=== PATIENT | male | born 1955 | race Two or more races ===

== ENCOUNTER 2018-01-28 09:55 | Inpatient (IN) | payer BC, MEDICAID ==
[~2018-01-28] VITALS: Ht 165.1 cm; Wt 90.3 kg
--- NOTE | 2018-01-28 10:00 | NUR ---
FROM DR'S OFFICE: CHEST PAIN/SOB TODAY. NAD NOTED. PT AAO X4, AMB WITH STEADY GAIT. 86% ON RA AT THIS TIME. NC PLACED 4L. PT PLACED IN GOWN AND MONITOR. MD AT BEDSIDE FOR EVAL.
[2018-01-28 10:26] LABS: BASOPHILS % (AUTO) 0.5 % (0.0-2.0); EOSINOPHILS % (AUTO) 1.9 % (0.0-6.0); HEMATOCRIT 33 % (39-51); HEMOGLOBIN 10.8 g/dL (13.5-17.5); LYMPHOCYTES # (AUTO) 1.9 /CMM (0.8-4.8); LYMPHOCYTES % (AUTO) 25.3 % (20.0-44.0); MEAN CORPUSCULAR HGB CONC 33 g/dl (31.0-36.0); MEAN CORPUSCULAR VOLUME 84 fL (80-96); MONOCYTES # (AUTO) 0.7 /CMM (0.1-1.30); NEUTROPHILS # (AUTO) 4.9 /CMM (1.8-8.9); NEUTROPHILS % (AUTO) 63.3 % (43.0-81.0); PLATELET COUNT (AUTO) 333 /CMM (150-450); RDW COEFFICIENT OF VARIATION 17.1 (11.5-15.0); RED BLOOD CELL COUNT(AUTO) 3.93 MIL/uL (4.5-6.0); WHITE BLOOD COUNT (AUTO) 7.6 K/uL (4.3-11.0)
[2018-01-28] MEDS ORDERED: methylPREDNISolone SOD SUCC 125 MG/2ML VIAL ONE (10:27)
[2018-01-28] MEDS ORDERED: IPRATROPIUM NEB FS 0.5 MG/2.5 ML AMPUL.NEB NEB ONE (10:30)
[2018-01-28] MEDS ORDERED: ALBUTEROL FS 2.5 MG/3 ML VIAL.NEB NEB ONE (10:30)
[2018-01-28] MEDS ORDERED: methylPREDNISolone SOD SUCC 125 MG/2ML VIAL IV ONE (10:30)
[2018-01-28] MEDS ORDERED: ALBUTEROL FS 2.5 MG/3 ML VIAL.NEB ONE (10:32)
[2018-01-28] MEDS ORDERED: IPRATROPIUM NEB FS 0.5 MG/2.5 ML AMPUL.NEB ONE (10:32)
[2018-01-28 10:35] LABS: CALCIUM, SERUM 9.6 mg/dL (8.5-10.1); CREATININE 1.2 mg/dL (0.6-1.3); POTASSIUM 4.1 mmol/L (3.5-5.1)
[2018-01-28 10:43] LABS: TROPONIN I 0.03 ng/mL (0.00-0.056)
[2018-01-28 10:52] LABS: ALBUMIN 3.3 g/dL (3.4-5.0); BILIRUBIN,DIRECT 0.3 mg/dL (0.0-0.2); TOTAL PROTEIN, SERUM 8.3 g/dL (6.4-8.2)
[2018-01-28] MEDS ORDERED: TAMS0.4C34 PO (10:59)
[2018-01-28] MEDS ORDERED: METF-442 PO (10:59)
[2018-01-28] MEDS ORDERED: IBUP-1955 PO (10:59)
[2018-01-28] MEDS ORDERED: DOCU-270 PO (10:59)
[2018-01-28] MEDS ORDERED: LOSA100T15 PO (10:59)
[2018-01-28] MEDS ORDERED: FURO20TA4 PO (10:59)
[2018-01-28] MEDS ORDERED: GABA-532 PO (10:59)
[2018-01-28] MEDS ORDERED: ASPI-1152 PO (10:59)
[2018-01-28] MEDS ORDERED: ALBU18HF2 IH (10:59)
[2018-01-28] MEDS ORDERED: METO-357 PO (10:59)
[2018-01-28] MEDS ORDERED: GLIM2TAB2 PO (10:59)
[2018-01-28] MEDS ORDERED: CLON0.1T PO (11:00)
--- NOTE | 2018-01-28 11:49 | NUR ---
CALLED [employer] ENTRY LEVEL FINANCIAL ANALYST WAS PAGED.
[2018-01-28] MEDS ORDERED: FUROSEMIDE 40 MG/4 ML VIAL ONE (11:59)
[2018-01-28] MEDS ORDERED: NITROGLYCERIN PACKET 1 GM PACKET ONE (11:59)
[2018-01-28] MEDS ORDERED: NITROGLYCERIN PACKET 1 GM PACKET TD ONE (12:00)
[2018-01-28] MEDS ORDERED: ASPIRIN 325 MG TABLET PO ONE (12:00)
[2018-01-28] MEDS ORDERED: FUROSEMIDE 40 MG/4 ML VIAL IV ONE (12:00)
[2018-01-28] MEDS ORDERED: ASPIRIN 325 MG TABLET ONE (12:00)
[2018-01-28 13:45] VITALS: BP 151/79
--- NOTE | 2018-01-28 13:45 | NUR ---
RN NOTES RECEIVED PT FROM ER IN ROOM 112-1, A/OX4, ON 4L O2 N/C , O2 SAT 93%, RESPIRATION EVEN AND UNLABORED , ON TELE SR HR IN 90'S, PT DREAD ANY CHEST PAIN AT THIS TIME ,SR UP x3, CALL LIGHT WITHIN EASY REACH ,BED LOCKED AND IN LOWEST POSITION , CONTINUE TO MONITOR PT MONICA.
[2018-01-28 15:13] LABS: INR 1.08 (0.87-1.13)
[2018-01-28 15:57] LABS: ABG BASE EXCESS 10.2 mmol/L; ABG OXYGEN SATURATION 91.2 % (92.0-98.5); ABG PCO2 55.5 mmHg (35.0-45.0); ABG PH 7.433 (7.350-7.450); ABG PO2 65.7 mmHg (75.0-100.0); AaDO2 126.6 mmHg; COHb 0.9 % (0.5-1.5); MetHb 0.4 % (0.0-1.5); SITE, ABG Right Radial; VENT MODE, BG nasal cannula
[2018-01-28] MEDS ORDERED: IBUPROFEN 600 MG TABLET PO PRN (16:00)
[2018-01-28] MEDS ORDERED: Z GUARD REMEDY 2 OZ OINT TP PRN (16:00)
[2018-01-28] MEDS ORDERED: MAGNESIUM HYDROXIDE 30 ML UDC PO PRN (16:00)
[2018-01-28] MEDS ORDERED: MAG HYDROX/AL HYDROX/SIMETH 30 ML UDC PO PRN (16:00)
[2018-01-28] MEDS ORDERED: ONDANSETRON HCL/PF 4 MG/2 ML VIAL IVP PRN (16:00)
[2018-01-28] MEDS ORDERED: ACETAMINOPHEN 325 MG TABLET PO PRN (16:00)
--- NOTE | 2018-01-28 16:03 | NUR ---
ABG RESULTS REPORTED TO AND CHARGE NURSE(SOON) WITH NO CHANGES ORDERED.
[2018-01-28] MEDS: IPRATROPIUM NEB FS 0.5 MG/2.5 ML AMPUL.NEB NEB SCH ×2 (16:43→19:53)
[2018-01-28] MEDS: FUROSEMIDE 20 MG TABLET PO SCH (17:07)
[2018-01-28] MEDS: METFORMIN 500 MG TABLET PO SCH (17:08)
[2018-01-28] MEDS: HYDROCODONE/APAP 5/325MG 1 EACH TABLET PO PRN (18:28)
--- NOTE | 2018-01-28 18:46 | NUR ---
RN NOTES PT STABLE , DREAD ANY DISTRESS AT THIS TIME, SR UPx3, CALL LIGHT WITHIN EASY REACH, WILL ENDORSE TO WATCH ELECTRICIAN NURSE FOR DEMETRIA
[2018-01-28] MEDS ORDERED: ALBUTEROL FS 2.5 MG/0.5 ML VIAL.NEB NEB PRN (19:30)
--- NOTE | 2018-01-28 19:30 | NUR ---
LADY/RN NOTES: RECEIVED PT. IN BED W/ HOB ELEVATED. A/O X 4. ABLE TO MAKE NEEDS KNOWN. ON O2 @ 3LPM VIA N/C SAT. 96%. NO S/S OF RESPIRATORY DISTRESS NOTED. ON TELE MONITOR SR @ 74. CONTINENT OF B/B. USES URINAL. CALL LIGHT W/ REACH. ALL NEED MEET. WILL CONTINUE TO MONITOR.
[2018-01-28 20:00] VITALS: BP 160/87
[2018-01-28] MEDS: GABAPENTIN 100 MG CAPSULE PO SCH (21:27)
[2018-01-29] VITALS: BP 164/85
[2018-01-29] MEDS: CLONIDINE HCL 0.1 MG TABLET PO PRN (00:28)
[2018-01-29] MEDS: IPRATROPIUM NEB FS 0.5 MG/2.5 ML AMPUL.NEB NEB SCH ×4 (01:33→19:43)
[2018-01-29] MEDS: HYDROCODONE/APAP 5/325MG 1 EACH TABLET PO PRN (03:23)
[2018-01-29 04:00] VITALS: BP 159/87
[2018-01-29] MEDS: hydrALAZINE HCL IV 20 MG VIAL IV PRN (06:11)
[2018-01-29 07:06] LABS: BASOPHILS % (AUTO) 0.2 % (0.0-2.0); HEMATOCRIT 32 % (39-51); HEMOGLOBIN 10.4 g/dL (13.5-17.5); LYMPHOCYTES % (AUTO) 13.5 % (20.0-44.0); MEAN CORPUSCULAR HGB CONC 32 g/dl (31.0-36.0); MEAN CORPUSCULAR VOLUME 86 fL (80-96); MONOCYTES # (AUTO) 0.8 /CMM (0.1-1.30); MONOCYTES % (AUTO) 11.6 % (2.0-12.0); NEUTROPHILS # (AUTO) 5.4 /CMM (1.8-8.9); NEUTROPHILS % (AUTO) 74.7 % (43.0-81.0); PLATELET COUNT (AUTO) 274 /CMM (150-450); RDW COEFFICIENT OF VARIATION 17.7 (11.5-15.0); RED BLOOD CELL COUNT(AUTO) 3.78 MIL/uL (4.5-6.0); WHITE BLOOD COUNT (AUTO) 7.3 K/uL (4.3-11.0)
--- NOTE | 2018-01-29 07:30 | NUR ---
LADY/RN AM NOTES: RECEIVED PT. IN BED W/ HOB ELEVATED. A/O X 4. ABLE TO MAKE NEEDS KNOWN. ON O2 @ 3LPM VIA N/C SAT. 91%. NO SOB, NOT IN ANY DISTRESS, TELEMETRY READS SR HR 87. DENIES PAIN. RAC G 18 IVHL FLUSHES WELL, SITE CLEAR. ON CCHO. BRP. CONTINENT OF B/B. USES URINAL. INTACT SKIN. CALL LIGHT W/ REACH. WILL CONTINUE TO MONITOR.
[2018-01-29 07:33] LABS: THYROID STIMULATING HORMONE 0.932 uIU/mL (0.358-3.74)
[2018-01-29 07:38] LABS: ALBUMIN 3.1 g/dL (3.4-5.0); BILIRUBIN,TOTAL 0.5 mg/dL (0.2-1.0); CALCIUM, SERUM 9.1 mg/dL (8.5-10.1); CREATININE 1.3 mg/dL (0.6-1.3); MAGNESIUM 2.7 mg/dL (1.8-2.4); PHOSPHORUS 5.3 mg/dL (2.5-4.9); POTASSIUM 5.3 mmol/L (3.5-5.1); TOTAL PROTEIN, SERUM 7.9 g/dL (6.4-8.2)
--- NOTE | 2018-01-29 07:38 | NUR ---
LADY/RN NOTES: BP IN 180'S. W/ NEW ORDERS NOTED AND CARRIED OUT. REPORT GIVEN TO NEXT SHIFT NURSE FOR DEMETRIA.
[2018-01-29 08:00] VITALS: BP 143/70
--- NOTE | 2018-01-29 09:30 | NUR ---
LADY RN NOTES DUE MEDS GIVEN
[2018-01-29] MEDS: GLIMEPIRIDE 1 MG TABLET PO SCH (09:33)
[2018-01-29] MEDS: TAMSULOSIN 0.4 MG CAP.SR.24H PO SCH (09:33)
[2018-01-29] MEDS: FUROSEMIDE 20 MG TABLET PO SCH ×2 (09:33→16:30)
[2018-01-29] MEDS: METFORMIN 500 MG TABLET PO SCH ×2 (09:33→16:30)
[2018-01-29] MEDS: DOCUSATE SODIUM 100 MG CAPSULE PO SCH (09:33)
[2018-01-29] MEDS: ASPIRIN EC 81 MG TABLET.DR PO SCH (09:34)
[2018-01-29] MEDS: METOPROLOL SUCCINATE 50 MG TAB.SR.24H PO SCH (09:35)
[2018-01-29] MEDS: LOSARTAN POTASSIUM 50 MG TABLET PO SCH (09:36)
[2018-01-29] MEDS ORDERED: LIDOCAINE HCL/PF 1% 30 ML SDV ONE (10:55)
--- NOTE | 2018-01-29 11:38 | NUR ---
LADY ORDONEZ NOTES S/P THORACENTESIS RIGHT PLEURAL EFFUSION 1600 ML OUT. SPECIMEN LABELED AND SENT TO LAB. Addendum: 01/29/18 at 1432 by COSTA EDWARDS RN CORRECTION: 1500 ML OUTPUT
[2018-01-29 12:00] VITALS: BP 158/84
[2018-01-29 16:00] VITALS: BP 131/83
[2018-01-29] MEDS ORDERED: MORPHINE SULFATE INJ 4 MG/ML DISP.SYRIN IV ONE (16:00)
--- NOTE | 2018-01-29 16:12 | NUR ---
LADY RN NOTES PATIENT IS ON OXYGEN AND HAS MILD SOB WHEN MOVING. S/P THORACENTESIS. WILL NOT GIVE MORPHINE SULFATE AT THIS TIME DUE RESPIRATORY ISSUES. PATIENT ALSO IS S/P THORACENTESIS. BLANE MORENO SUPERVISOR LABORATORY AWARE.
--- NOTE | 2018-01-29 18:45 | NUR ---
LADY/RN CLOSING NOTES: PT. IN BED RESTING, W/ HOB ELEVATED. A/O X 4. ABLE TO MAKE NEEDS KNOWN. ON O2 @ 3LPM VIA N/C SAT. 95%. NO SOB, NOT IN ANY DISTRESS, TELEMETRY READS SR HR 78. DENIES PAIN. RAC G 18 IVHL FLUSHES WELL, SITE CLEAR. ON CCHO. BRP. CONTINENT OF B/B. USES URINAL. INTACT SKIN. CALL LIGHT W/ REACH. ALL NEEDS MET, NO OTHER SIGNIFICANT CHANGE IN CONDITION. WILL ENDORSE TO NEXT SHIFT FOR DEMETRIA.
--- NOTE | 2018-01-29 19:30 | NUR ---
LADY/RN NOTES: RECEIVED PT. IN BED W/ HOB ELEVATED W/ O2 @ 3LPM VIA N/C SAT. 93%. W/ AT BEDSIDE. A/O X 4. ON TELE MONITOR W/ SR @ 76. S/P THORACENTESIS. HAS IV SL ON RAC G 18 PATENT AND INTACT W/ NO S/S OF INFECTION/INFILTRATION NOTED. PT. IS CONTINENT OF B/B. USES URINAL AND GOES TO BATHROOM. DENIES ANY C/O CHEST PAIN OR SOB AT PRESENT. WILL CONTINUE TO MONITOR.
[2018-01-29 20:00] VITALS: BP 133/71
[2018-01-29] MEDS: GABAPENTIN 100 MG CAPSULE PO SCH (21:19)
[2018-01-30] VITALS (17 sets, daily range): BP systolic 129–185; BP diastolic 71–104
[2018-01-30] MEDS: IPRATROPIUM NEB FS 0.5 MG/2.5 ML AMPUL.NEB NEB SCH ×4 (01:48→19:33)
[2018-01-30] MEDS: hydrALAZINE HCL IV 20 MG VIAL IV PRN (05:19)
[2018-01-30 06:59] LABS: CALCIUM, SERUM 8.9 mg/dL (8.5-10.1); CREATININE 1.2 mg/dL (0.6-1.3); POTASSIUM 4.6 mmol/L (3.5-5.1)
--- NOTE | 2018-01-30 07:15 | NUR ---
LADY/RN NOTES: NO CHANGE NOTED DURING THIS SHIFT. REPORT GIVEN TO AM NURSE FOR DEMETRIA.
--- NOTE | 2018-01-30 07:30 | NUR ---
LADY/RN: Pt received on RA, SOB, reapplied O2 at 3L/min via NC. Pt A&Ox3, calm, cooperative. Pt states he feels "so-so" and reports having difficulty sleeping at night. Informed pt that he must keep oxygen on, verbalized understanding. Will cont to monitor pt.
[2018-01-30] MEDS: TAMSULOSIN 0.4 MG CAP.SR.24H PO SCH (08:17)
[2018-01-30] MEDS: METOPROLOL SUCCINATE 50 MG TAB.SR.24H PO SCH (08:17)
[2018-01-30] MEDS: GLIMEPIRIDE 1 MG TABLET PO SCH (08:17)
[2018-01-30] MEDS: ASPIRIN EC 81 MG TABLET.DR PO SCH (08:17)
[2018-01-30] MEDS: METFORMIN 500 MG TABLET PO SCH ×2 (08:17→16:27)
[2018-01-30] MEDS: FUROSEMIDE 20 MG TABLET PO SCH ×2 (08:17→16:26)
[2018-01-30] MEDS: DOCUSATE SODIUM 100 MG CAPSULE PO SCH (08:17)
[2018-01-30] MEDS: LOSARTAN POTASSIUM 50 MG TABLET PO SCH (08:17)
[2018-01-30] MEDS: HYDROCODONE/APAP 5/325MG 1 EACH TABLET PO PRN (08:58)
--- NOTE | 2018-01-30 09:00 | NUR ---
MS/RN: Dr Zenia camacho, updated on pt status, as well as periods of desaturation off NC. Per MD, pt is not ready for DC.
--- NOTE | 2018-01-30 15:18 | NUR ---
MS/RN: Derrell Munoz, SMALL EQUIPMENT OPERATOR at bedside. Updated on pt status. Informed of SOB with exertion, unable to titrate down O2 requirements. New orders noted and carried out.
--- NOTE | 2018-01-30 15:40 | NUR ---
ICU/RN: Pt noted to be increasingly confused and forgetful, SOB, despite being calm and cooperative - orders obtained for CXR and ABG.
[2018-01-30 15:52] LABS: ABG BASE EXCESS 9.2 mmol/L; ABG OXYGEN SATURATION 93.9 % (92.0-98.5); ABG PCO2 80.5 mmHg (35.0-45.0); ABG PH 7.294 (7.350-7.450); ABG PO2 77.4 mmHg (75.0-100.0); AaDO2 56.6 mmHg; COHb 0.5 % (0.5-1.5); MetHb 0.6 % (0.0-1.5); O2Hb 92.9 % (94.0-97.0); SITE, ABG Right Radial; VENT MODE, BG NASAL CANNULA
--- NOTE | 2018-01-30 16:00 | NUR ---
MS/RN: Dr Torres called regarding critical ABG: pH 7.29, pO2 77, pCO2 80, HCO3 38 - with orders to transfer to ICU for rescue BiPAP. CXR reviewed with Dr Knutson revealing sudden re-accumulation of fluid in R lung s/p thoracentesis yesterday. Pt transferred to ICU in stable condition, accompanied by RN and RT. Belongings sent with pt. Bedside report given to MERY García and supercharger repair supervisor for curt.
--- NOTE | 2018-01-30 16:15 | NUR ---
INSTANT POTATO PROCESSOR: pt. is transferred to ICU d/t critical ABG: pH 7.29, pO2 77, pCO2 80, HCO3 38, pt.is little confused
--- NOTE | 2018-01-30 16:25 | NUR ---
MEDICAL ACCOUNTANT: got pt.from LADY on Bipap 15/, R12, 30% FiO2, RR around 30 now, wheezing/spoke with RT for possible resp.Tx, SR, SBP over 100, pt.is A/Ox3, no any pain, by report: plan is second thoracentesis tomorrow, oriented pt. for POC
--- NOTE | 2018-01-30 17:00 | NUR ---
PLANT ASSIGNER: pt.got confused, removed Bipap mask, no any c/o, got urine container, encouraged to be cooperative, oriented for POC again, SR, RR 24-30, SBP 160, placed back on Bipap, called for RT
--- NOTE | 2018-01-30 17:28 | NUR ---
COMPLAINT SUPERVISOR: BS 64, orange juice 300ml was given, pt. is cooperative now, Bipap machine was changed d/t tech problem by RTs, pt. is rest, cooperative now, O2 sat. 92-96%, no SOB
--- NOTE | 2018-01-30 17:42 | NUR ---
SEARCH MARKETING ANALYST: RT is going to repeat ABG at 18.10
[2018-01-30] MEDS ORDERED: FUROSEMIDE 40 MG/4 ML VIAL IV ONE (18:00)
--- NOTE | 2018-01-30 18:05 | NUR ---
KILN REPAIRER: pt. called, notified re pt.current condition, VS, orders, POC
[2018-01-30] MEDS: CLONIDINE HCL 0.1 MG TABLET PO PRN (18:06)
[2018-01-30 18:21] LABS: ABG BASE EXCESS 7.9 mmol/L; ABG OXYGEN SATURATION 96.7 % (92.0-98.5); ABG PCO2 75.7 mmHg (35.0-45.0); ABG PH 7.301 (7.350-7.450); ABG PO2 103.1 mmHg (75.0-100.0); COHb 0.3 % (0.5-1.5); MetHb 0.8 % (0.0-1.5); O2Hb 95.6 % (94.0-97.0); SITE, ABG Right Radial; VENT MODE, BG BIPAP 15/5
--- NOTE | 2018-01-30 18:30 | NUR ---
RN PLASTIC SURGERY: RT repeated ABG: in little progress, pH 7.30, pO2 103, pCO2 75, bicarb 36, updated/called back, ordered: increase IPAP to 18, repeat ABG in 2 hrs, RT notified
--- NOTE | 2018-01-30 19:31 | NUR ---
STEAM SETTER. INITIAL ASSESSMENT. RECEIVED THE PT REST ON THE BED. AWAKE, ALERT, FOLLOW COMMANDS. BIPAP ON. SETTINGS 18/5,RATE 12, FIO2 30%. SAT 93%. NO ACUTE DISTRESS NOTED. CERTIFIED NOVELL ADMINISTRATOR SHOWING NSR WITH 1ST DEGREE AVB. HOB ELEVATED.IV RT HAND 20G. SALINE LOCK. WILL CONTINUE TO MONITOR VITALS.
[2018-01-30 20:36] LABS: ABG BASE EXCESS 11.6 mmol/L; ABG OXYGEN SATURATION 95.7 % (92.0-98.5); ABG PCO2 72.7 mmHg (35.0-45.0); ABG PH 7.355 (7.350-7.450); ABG PO2 87.4 mmHg (75.0-100.0); AaDO2 114.2 mmHg; COHb 0.5 % (0.5-1.5); MetHb 0.7 % (0.0-1.5); O2Hb 94.6 % (94.0-97.0); SITE, ABG Right Radial
--- NOTE | 2018-01-30 20:53 | NUR ---
PILOT CAN ROUTER, PT INCONTINENCE FC 16 FR WITH OUT DIFFICULT INSERTED BY ED RN . URINE DRAINING CLEAR , WILL CONTINUE TO MONITOR.
[2018-01-30] MEDS: GABAPENTIN 100 MG CAPSULE PO SCH (21:47)
[2018-01-30] MEDS: LORAZEPAM INJ 2 MG/ML VIAL IV PRN (22:30)
--- NOTE | 2018-01-30 22:41 | NUR ---
PT IS NONCOMPLIANT VINCENTIAN SPEAKING KEEPS REMOVING HIS BIPAP. EXPLAINED TO HIM VIA ORANGE PEEL OPERATOR SWAPNA AVELAR THE BENEFIT OF BIPAP AND OXYGEN. PT STILL DOESN'T WANT TO WEAR HIS BIPAP. PT AGREED TO BE PLACE ON VENTURI MASK 40%. MERY CROSS AND ENGAGEMENT MGR ED AWARE. WILL CONTINUE TO MONITOR. Addendum: 01/30/18 at 6876 by PA DUMAS RT Amended: Links added.
[2018-01-31] VITALS (35 sets, daily range): BP systolic 132–199; BP diastolic 58–98
[2018-01-31] MEDS ORDERED: FUROSEMIDE 20 MG/2 ML VIAL ONE (01:04)
[2018-01-31] MEDS: diphenhydrAMINE HCL 50 MG/ML VIAL IV PRN ×2 (01:07→19:46)
[2018-01-31] MEDS ORDERED: FUROSEMIDE 20 MG/2 ML VIAL IV SCH (01:30)
[2018-01-31] MEDS: IPRATROPIUM NEB FS 0.5 MG/2.5 ML AMPUL.NEB NEB SCH ×4 (01:34→19:33)
--- NOTE | 2018-01-31 02:28 | NUR ---
PROPERTY HANDLER.PT IS AGITATED.GETTING OUT OF BED, PULLING F/C AND IV . JAVIER SOFT WRIST RESTRAINT INITIATED.
--- NOTE | 2018-01-31 02:30 | NUR ---
CHANGE OF ADDRESS CLERK. PT VERY AGITATED , REFUSED BIPAP, OXYGEN MASK PLACED.AGIN PT AGITATED, CALLED SALES AND OPERATIONS TRAINEE NOVEL , BENADRYL 25MG IV GIVEN. WILL CONTINUE TO MONITOR.
[2018-01-31] MEDS: METOPROLOL SUCCINATE 50 MG TAB.SR.24H PO SCH ×3 (03:17→15:17)
[2018-01-31] MEDS: LORAZEPAM INJ 2 MG/ML VIAL IV PRN (04:46)
[2018-01-31 04:47] LABS: BASOPHILS % (AUTO) 0.3 % (0.0-2.0); EOSINOPHILS % (AUTO) 1.8 % (0.0-6.0); HEMATOCRIT 32 % (39-51); LYMPHOCYTES % (AUTO) 19.9 % (20.0-44.0); MEAN CORPUSCULAR HGB CONC 32 g/dl (31.0-36.0); MEAN CORPUSCULAR VOLUME 86 fL (80-96); MONOCYTES # (AUTO) 1.1 /CMM (0.1-1.30); MONOCYTES % (AUTO) 11.3 % (2.0-12.0); NEUTROPHILS # (AUTO) 6.7 /CMM (1.8-8.9); NEUTROPHILS % (AUTO) 66.7 % (43.0-81.0); PLATELET COUNT (AUTO) 268 /CMM (150-450); RDW COEFFICIENT OF VARIATION 17.1 (11.5-15.0); RED BLOOD CELL COUNT(AUTO) 3.68 MIL/uL (4.5-6.0)
[2018-01-31 05:05] LABS: INR 1.14 (0.87-1.13)
[2018-01-31 05:06] LABS: CALCIUM, SERUM 8.5 mg/dL (8.5-10.1); CREATININE 0.9 mg/dL (0.6-1.3); POTASSIUM 3.8 mmol/L (3.5-5.1)
--- NOTE | 2018-01-31 07:01 | NUR ---
CLINICAL ACCOUNT SPECIALIST- Initial Note Received pt a/o x1, confused and agitated. 1:1 sitter at bedside. Currently on bipap, respirations even and unlabored, tachypnea noted as pt is restless. Bedside monitor reveals Sinus Rhythm with 1st degree AV block. Two IVs present: RAC 18G and left hand 20G HL flushed. RAC IV occluded and left hand IV leaking. New IVs to be inserted. Hawkins catheter present and draining to gravity. Hematuria noted as welder 2nd shift nurse stated pt was attempting to remove hawkins catheter last night. Will continue to monitor.
[2018-01-31 08:28] LABS: ABG BASE EXCESS 11.8 mmol/L; ABG OXYGEN SATURATION 89.2 % (92.0-98.5); ABG PCO2 79.6 mmHg (35.0-45.0); ABG PH 7.325 (7.350-7.450); ABG PO2 59.6 mmHg (75.0-100.0); AaDO2 60.8 mmHg; COHb 0.6 % (0.5-1.5); MetHb 0.6 % (0.0-1.5); O2Hb 88.1 % (94.0-97.0); SITE, ABG Right Radial; VENT MODE, BG BIPAP 18/5 R12 30%
[2018-01-31] MEDS: TAMSULOSIN 0.4 MG CAP.SR.24H PO SCH (09:00)
[2018-01-31] MEDS: LOSARTAN POTASSIUM 50 MG TABLET PO SCH (09:00)
[2018-01-31] MEDS: ASPIRIN EC 81 MG TABLET.DR PO SCH (09:00)
[2018-01-31] MEDS: METFORMIN 500 MG TABLET PO SCH ×2 (09:00→16:39)
[2018-01-31] MEDS: GLIMEPIRIDE 1 MG TABLET PO SCH (09:00)
[2018-01-31] MEDS: DOCUSATE SODIUM 100 MG CAPSULE PO SCH (09:00)
[2018-01-31] MEDS: methylPREDNISolone SOD SUCC 40 MG/ML VIAL IV SCH ×3 (09:46→16:51)
--- NOTE | 2018-01-31 10:05 | NUR ---
SUPERVISOR TURKEY FARM- Dr. Torres at bedside. Updated md on pt's condition. ABG results relayed to md. Bipap settings changed to 20/5 per md order. RT aware. 1040- Per md, d/c current order of Ativan 0.5 mg IV. Order discontinued. New order obtained for Lasix 20 mg IV BID (first dose now). Order placed. Will continue to monitor.
--- NOTE | 2018-01-31 10:11 | NUR ---
PER DR GARCIA BIPAP SETTINGS CHANGED TO 20/ R12 40%. RN AWARE
[2018-01-31] MEDS: FUROSEMIDE 20 MG/2 ML VIAL IV SCH ×2 (11:13→16:51)
[2018-01-31] MEDS: hydrALAZINE HCL IV 20 MG VIAL IV PRN (13:08)
--- NOTE | 2018-01-31 13:08 | NUR ---
ENGINEERING PROFESSIONALS- Pt sleeping in bed. Noted with elevated BP. BP was elevated previously but pt agitated at that time. No agitation noted at this moment. Will administer Hydralazine 10 mg IV as ordered in JAN. Will continue to monitor.
--- NOTE | 2018-01-31 14:30 | NUR ---
FILTER HELPER- Pt noted to be less agitated & confused. Pt awake, able to follow commands and requesting to sit up. Sat patient up in chair. No distress noted, saturating 93%. Pt appears to be comfortable. All linens changed. Safety measures maintained. 1515- Blood pressure remains elevated. Administered Metoprolol 50 mg PO as ordered this am (not given this AM due to restlessness & agitation). Pt able to swallow pill whole. Aspiration precautions maintained. 1530- Pt requesting to go back to bed and sleep. With assistance from sitter, assisted pt back to bed. 1:1 sitter remains at bedside. Will continue to monitor.
--- NOTE | 2018-01-31 18:15 | NUR ---
FOAM FABRICATOR- Pt very agitated, restless and aggressive. Pt attempting to hit and kick staff. Sitter, charge nurse and myself at bedside attempting to place bipap back on pt, re-orient and explain to pt importance of bipap use. Security was called to bedside as well for safety. 183- Pt noted to be less agitated but still restless. Sitter at bedside. Will continue to monitor.
--- NOTE | 2018-01-31 19:30 | NUR ---
CIGARETTE EXAMINER INITIAL NOTES RECEIVED PATIENT IN BED, AWAKE, GAMBIAN SPEAKING, ALERT BUT CONFUSED AT THIS TIME, AGITATED, WILL REORIENT NEEDED. PATIENT CURRENTLY ON BIPAP AT PRESCRIBED SETTINGS, TOLERATING WELL. NOTED WITH BILATERAL SOFT WRIST RESTRAINTS FOR SAFETY, RESTRAINTS REMOVED AND SITE ASSESSED FOR CIRCULATION, REAPPLIED. PATIENT ON TELEMETRY MONITORING, REVEALING SINUS RHYTHM WITH 1ST DEGREE AV BLOCK, RATE AT 89 BPM. LEFT AC AND LEFT FOREARM IV FLUSHED WITH NS, PATENT AND INTACT, FREE FROM ANY S/S OF INFILTRATION OR PHLEBITIS. CALL LIGHT LEFT WITHIN EASY REACH, BED IN LOWEST AND LOCKED POSITION. WILL CONTINUE TO CLOSELY MONITOR
--- NOTE | 2018-01-31 19:49 | NUR ---
RESTAURANT WORKER NOTES PATIENT IS ANXIOUS, AGITATED, AND RESTLESS. ATTEMPTED TO REPOSITION PATIENT FOR COMFORT, INEFFECTIVE, PATIENT CONTINUES TO SLIDE DOWN BED. BILATERAL SOFT WRIST RESTRAINTS IN PLACE FOR SAFETY. VERBAL ATTEMPTS TO REORIENT PATIENT INEFFECTIVE. BENADRYL IVP ADMINISTERED. WILL CONTINUE TO CLOSELY MONITOR THE PATIENT
--- NOTE | 2018-01-31 19:56 | NUR ---
PT RECEIVED ON BIPAP. TOLERATING SETTINGS. ALARMS SET AND AUDIBLE. WILL CONTINUE TO MONITOR. Addendum: 01/31/18 at 7 by PA DUMAS RT Amended: Links added.
[2018-01-31] MEDS: HYDROCODONE/APAP 10/325MG 1 EA TABLET PO PRN (21:55)
[2018-01-31] MEDS: GABAPENTIN 100 MG CAPSULE PO SCH (21:55)
[2018-02-01] VITALS (28 sets, daily range): BP systolic 104–163; BP diastolic 56–91
[2018-02-01] MEDS: IPRATROPIUM NEB FS 0.5 MG/2.5 ML AMPUL.NEB NEB SCH ×4 (01:20→20:02)
[2018-02-01] MEDS: diphenhydrAMINE HCL 50 MG/ML VIAL IV PRN (02:24)
--- NOTE | 2018-02-01 02:27 | NUR ---
RESIDENT CARE SPEC NOTES PATIENT AWAKE, EYES OPEN, AGITATED AND RESTLESS AT THIS TIME, KICKING. ATTEMPTED TO REORIENT AND REPOSITION PATIENT, BUT INEFFECTIVE, PATIENT REMAINS RESTLESS/AGITATED. BENADRYL IVP ADMINISTERED PRESCRIBED. WILL CONTINUE TO CLOSELY MONITOR
[2018-02-01] MEDS: HYDROCODONE/APAP 5/325MG 1 EACH TABLET PO PRN (03:05)
[2018-02-01] MEDS: HYDROCODONE/APAP 10/325MG 1 EA TABLET PO PRN (03:57)
--- NOTE | 2018-02-01 06:55 | NUR ---
RN NOTES PATIENT SLEEPING IN BED, APPEARS COMFORTABLE, CONTINUES ON BIPAP. PATIENT NO LONGER RESTLESS/AGITATED. WILL ENDORSE THE PATIENT TO THE AM SHIFT NURSE FOR DEMETRIA
--- NOTE | 2018-02-01 07:06 | NUR ---
REFRIGERATING ENGINEER HEAD- Initial Note Received pt sleeping & resting in bed. Currently on bipap, respirations even and unlabored, no SOB or distress present. Bedside monitor reveals Sinus Rhythm with 1st degree AV block. Two IVs present: LFA 20G HL and LAC 20G HL. Both IVs flushed, patent, intact and free of redness, swelling and inflammation. Regalado catheter present and draining to gravity. Will continue to monitor.
[2018-02-01 07:45] LABS: BASOPHILS % (AUTO) 0.2 % (0.0-2.0); HEMATOCRIT 35 % (39-51); LYMPHOCYTES # (AUTO) 0.8 /CMM (0.8-4.8); LYMPHOCYTES % (AUTO) 7.8 % (20.0-44.0); MEAN CORPUSCULAR HGB CONC 32 g/dl (31.0-36.0); MEAN CORPUSCULAR VOLUME 85 fL (80-96); MONOCYTES # (AUTO) 0.7 /CMM (0.1-1.30); MONOCYTES % (AUTO) 6.5 % (2.0-12.0); NEUTROPHILS # (AUTO) 8.7 /CMM (1.8-8.9); NEUTROPHILS % (AUTO) 85.5 % (43.0-81.0); PLATELET COUNT (AUTO) 307 /CMM (150-450); RDW COEFFICIENT OF VARIATION 17.3 (11.5-15.0); RED BLOOD CELL COUNT(AUTO) 4.04 MIL/uL (4.5-6.0); WHITE BLOOD COUNT (AUTO) 10.1 K/uL (4.3-11.0)
[2018-02-01 07:50] LABS: CALCIUM, SERUM 8.8 mg/dL (8.5-10.1); CREATININE 1.2 mg/dL (0.6-1.3); POTASSIUM 4.7 mmol/L (3.5-5.1)
[2018-02-01 08:09] LABS: INR 1.18 (0.87-1.13)
[2018-02-01] MEDS: METFORMIN 500 MG TABLET PO SCH ×2 (09:00→18:12)
[2018-02-01] MEDS: LOSARTAN POTASSIUM 50 MG TABLET PO SCH (09:01)
[2018-02-01] MEDS: TAMSULOSIN 0.4 MG CAP.SR.24H PO SCH (09:01)
[2018-02-01] MEDS: METOPROLOL SUCCINATE 50 MG TAB.SR.24H PO SCH (09:01)
[2018-02-01] MEDS: ASPIRIN EC 81 MG TABLET.DR PO SCH (09:01)
[2018-02-01] MEDS: FUROSEMIDE 20 MG/2 ML VIAL IV SCH ×2 (09:01→16:20)
[2018-02-01] MEDS: methylPREDNISolone SOD SUCC 40 MG/ML VIAL IV SCH ×3 (09:01→16:20)
[2018-02-01] MEDS: GLIMEPIRIDE 1 MG TABLET PO SCH (09:01)
[2018-02-01] MEDS: DOCUSATE SODIUM 100 MG CAPSULE PO SCH (09:01)
--- NOTE | 2018-02-01 09:45 | NUR ---
ICU/RN: Pt received from MERY Gipson. Pt transferred from chair to bed, generalized weakness requiring 2 person max assist required. Mild SOB noted with exertion, pt A&Ox2, forgetful, remains calm and cooperative. Reoriented to unit. Pt with productive cough. FC draining well to gravity. Aspiration precautions in place, HOB elevated. Alarm sounds audible. Will cont to monitor pt.
[2018-02-01 10:44] LABS: ABG BASE EXCESS 11.2 mmol/L; ABG OXYGEN SATURATION 92.1 % (92.0-98.5); ABG PCO2 76.5 mmHg (35.0-45.0); ABG PH 7.336 (7.350-7.450); ABG PO2 69.2 mmHg (75.0-100.0); AaDO2 40.2 mmHg; MetHb 0.4 % (0.0-1.5); O2Hb 90.8 % (94.0-97.0); SITE, ABG Right Radial
--- NOTE | 2018-02-01 14:45 | NUR ---
ICU/RN: S/P thoracentesis R lung; 1.5 L out. SBP stable. Stat CXR ordered. Care endorsed to MERY Gipson for DEMETRIA.
[2018-02-01] MEDS: NYSTATIN TOP POWDER 15 GM BOTTLE TP SCH (18:12)
--- NOTE | 2018-02-01 19:45 | NUR ---
TRANSPORT TANK TECHNICIAN. INITIAL ASSESSMENT. RECEIVED THE PT REST ON THE BED. AWAKE, ALERT. FOLLOW COMMANDS. BIT AND SHANK DEPARTMENT SUPERVISOR SHOWING NSR. 1ST DEGREE AV BLOCK. OXYGEN 2L VIA NASAL CANNULA SAT 93%. IV RT AND LT HAND 20G. SALINE LOCK. FC PATENT. URINE DRAINING. WILL CONTINUE TO MONITOR VITALS.
[2018-02-01] MEDS: GABAPENTIN 100 MG CAPSULE PO SCH (22:41)
[2018-02-02] VITALS (26 sets, daily range): BP systolic 115–179; BP diastolic 39–117
[2018-02-02] MEDS: IPRATROPIUM NEB FS 0.5 MG/2.5 ML AMPUL.NEB NEB SCH ×4 (02:13→19:47)
--- NOTE | 2018-02-02 03:24 | NUR ---
ACCESS RN. BIPAP PLACED. 30MINUTES ONLY. PT REFUSED. WILL CONTINUE TO MONITOR. OXYGEN 2L NASAL CANNULA.
--- NOTE | 2018-02-02 03:26 | NUR ---
REDUCING SALON ATTENDANT. AM CARE. ORAL CARE, BED BATH GIVEN. LINEN CHANGED. REMAINING SAME OXYGEN 2L VIA NASAL CANNULA TOLERATED WELL. SAT 95%. NO ACUTE DISTRESS NOTED. FORESTRY AID TECHNICIAN SHOWING NSR. HOB ELEVATED. FC PATENT. URINE DRAINING. WILL CONTINUE TO MONITOR VITALS.
--- NOTE | 2018-02-02 03:53 | NUR ---
POWER BARKER OPERATOR. REPORT GIVEN TO DARIEN ORDONEZ.
[2018-02-02 05:05] LABS: HEMATOCRIT 33 % (39-51); HEMOGLOBIN 10.7 g/dL (13.5-17.5); LYMPHOCYTES # (AUTO) 0.5 /CMM (0.8-4.8); LYMPHOCYTES % (AUTO) 5.4 % (20.0-44.0); MEAN CORPUSCULAR HGB CONC 32 g/dl (31.0-36.0); MEAN CORPUSCULAR VOLUME 86 fL (80-96); MONOCYTES # (AUTO) 0.5 /CMM (0.1-1.30); MONOCYTES % (AUTO) 5.6 % (2.0-12.0); NEUTROPHILS # (AUTO) 8.6 /CMM (1.8-8.9); PLATELET COUNT (AUTO) 284 /CMM (150-450); RDW COEFFICIENT OF VARIATION 17.2 (11.5-15.0); RED BLOOD CELL COUNT(AUTO) 3.85 MIL/uL (4.5-6.0); WHITE BLOOD COUNT (AUTO) 9.7 K/uL (4.3-11.0)
[2018-02-02 05:24] LABS: CALCIUM, SERUM 8.4 mg/dL (8.5-10.1); CREATININE 1.5 mg/dL (0.6-1.3); POTASSIUM 4.7 mmol/L (3.5-5.1)
--- NOTE | 2018-02-02 07:30 | NUR ---
PATIENT SEEN AWAKE AND ORIENTED. ASSISTED OOB TO CHAIR FOR BREAKFAST. NO SOB NOTED. O2 AT 2L N/C. ENCOURAGED DEEP BREATHING EXERCISES. COMPLIANT WITH PLAN OF CARE. VSS. AFEBRILE.
--- NOTE | 2018-02-02 08:07 | NUR ---
WOUND CARE CONSULT: PT IS AMBULATORY WITH ASSISTANCE AND NOTED TO HAVE GARVIN CATH. SLIGHT RASH NOTED TO LEFT GROIN WHICH IS IMPROVING WITH CURRENT TREATMENT PER NURSING STAFF. WILL SEE PRN. Addendum: 02/02/18 at 0809 by JULIUS CHACKO WNDNU Amended: Links added.
[2018-02-02] MEDS: ASPIRIN EC 81 MG TABLET.DR PO SCH (08:16)
[2018-02-02] MEDS: FUROSEMIDE 20 MG/2 ML VIAL IV SCH ×2 (08:16→17:15)
[2018-02-02] MEDS: methylPREDNISolone SOD SUCC 40 MG/ML VIAL IV SCH ×2 (08:16→12:19)
[2018-02-02] MEDS: DOCUSATE SODIUM 100 MG CAPSULE PO SCH (08:17)
[2018-02-02] MEDS: LOSARTAN POTASSIUM 50 MG TABLET PO SCH (08:17)
[2018-02-02] MEDS: TAMSULOSIN 0.4 MG CAP.SR.24H PO SCH (08:17)
[2018-02-02] MEDS: GLIMEPIRIDE 1 MG TABLET PO SCH (08:17)
[2018-02-02] MEDS: METOPROLOL SUCCINATE 50 MG TAB.SR.24H PO SCH (08:17)
[2018-02-02] MEDS: METFORMIN 500 MG TABLET PO SCH ×2 (08:18→17:15)
[2018-02-02] MEDS: NYSTATIN TOP POWDER 15 GM BOTTLE TP SCH ×2 (08:18→17:15)
--- NOTE | 2018-02-02 09:30 | NUR ---
PATIENT SEEN BY DR. SANCHEZ. SPOKE TO PATIENT REGARDING PLAN OF CARE. WILL AWAIT FOR ABG THIS MORNING.
[2018-02-02 11:16] LABS: ABG BASE EXCESS 12.5 mmol/L; ABG OXYGEN SATURATION 95.7 % (92.0-98.5); ABG PCO2 75.3 mmHg (35.0-45.0); ABG PH 7.353 (7.350-7.450); ABG PO2 87.1 mmHg (75.0-100.0); AaDO2 23.7 mmHg; COHb 0.5 % (0.5-1.5); MetHb 0.6 % (0.0-1.5); O2Hb 94.6 % (94.0-97.0); SITE, ABG Right Radial; VENT MODE, BG NASAL CANNULA
--- NOTE | 2018-02-02 14:30 | NUR ---
ABG RESULTS SEEN BY DR. SANCHEZ-O2 1L N/C PER .
--- NOTE | 2018-02-02 18:00 | NUR ---
NO SOB PRESENTED. OOB TO CHAIR FOR MEALS WITH STANDBY ASSIST. INDEPENDENT WITH MEALS. AT BEDSIDE AT THIS TIME.
--- NOTE | 2018-02-02 20:00 | NUR ---
GRADE TAMPER - NOTES - PATIENT SEEN AWAKE AND ORIENTED. ASSISTED OOB TO CHAIR. NO SOB NOTED. O2 AT 1L NC. ENCOURAGED DEEP BREATHING EXERCISES. COMPLIANT WITH PLAN OF CARE. VSS. AFEBRILE.
[2018-02-02] MEDS: GABAPENTIN 100 MG CAPSULE PO SCH (21:59)
[2018-02-02] MEDS: CLONIDINE HCL 0.1 MG TABLET PO PRN (23:08)
[2018-02-02] MEDS: HYDROCODONE/APAP 5/325MG 1 EACH TABLET PO PRN (23:09)
--- NOTE | 2018-02-02 23:49 | NUR ---
PT PLACED ON NOC BIPAP. RN NOTIFIED. Addendum: 02/02/18 at 2350 by PA DUMAS RT Amended: Links added.
[2018-02-03] VITALS (19 sets, daily range): BP systolic 119–176; BP diastolic 56–92
--- NOTE | 2018-02-03 00:20 | NUR ---
PT REFUSED BIPAP, RIPPED OFF MASK AND ASKED TO JUST USE NASAL CANNULA
--- NOTE | 2018-02-03 00:56 | NUR ---
FOUND PT OFF BIPAP. PT SITTING ON CHAIR. Addendum: 02/03/18 at 0056 by PA DUMAS RT Amended: Links added.
[2018-02-03] MEDS: IPRATROPIUM NEB FS 0.5 MG/2.5 ML AMPUL.NEB NEB SCH ×4 (01:06→19:28)
[2018-02-03 04:54] LABS: HEMATOCRIT 34 % (39-51); LYMPHOCYTES % (AUTO) 8.8 % (20.0-44.0); MEAN CORPUSCULAR HGB CONC 32 g/dl (31.0-36.0); MEAN CORPUSCULAR VOLUME 85 fL (80-96); MONOCYTES # (AUTO) 1.1 /CMM (0.1-1.30); MONOCYTES % (AUTO) 10.5 % (2.0-12.0); NEUTROPHILS # (AUTO) 8.8 /CMM (1.8-8.9); NEUTROPHILS % (AUTO) 80.7 % (43.0-81.0); PLATELET COUNT (AUTO) 241 /CMM (150-450); RDW COEFFICIENT OF VARIATION 16.9 (11.5-15.0); RED BLOOD CELL COUNT(AUTO) 4.01 MIL/uL (4.5-6.0); WHITE BLOOD COUNT (AUTO) 10.9 K/uL (4.3-11.0)
[2018-02-03 05:21] LABS: CALCIUM, SERUM 8.6 mg/dL (8.5-10.1); CREATININE 1.1 mg/dL (0.6-1.3); MAGNESIUM 2.3 mg/dL (1.8-2.4); PHOSPHORUS 2.4 mg/dL (2.5-4.9); POTASSIUM 4.4 mmol/L (3.5-5.1)
[2018-02-03] MEDS: predniSONE 20 MG TABLET PO SCH (08:32)
[2018-02-03] MEDS: ASPIRIN EC 81 MG TABLET.DR PO SCH (08:32)
[2018-02-03] MEDS: TAMSULOSIN 0.4 MG CAP.SR.24H PO SCH (08:32)
[2018-02-03] MEDS: METFORMIN 500 MG TABLET PO SCH ×2 (08:32→16:22)
[2018-02-03] MEDS: DOCUSATE SODIUM 100 MG CAPSULE PO SCH (08:32)
[2018-02-03] MEDS: GLIMEPIRIDE 1 MG TABLET PO SCH (08:33)
[2018-02-03] MEDS: FUROSEMIDE 20 MG/2 ML VIAL IV SCH ×2 (08:33→16:22)
[2018-02-03] MEDS: LOSARTAN POTASSIUM 50 MG TABLET PO SCH (08:33)
[2018-02-03] MEDS: METOPROLOL SUCCINATE 50 MG TAB.SR.24H PO SCH (08:33)
[2018-02-03] MEDS: NYSTATIN TOP POWDER 15 GM BOTTLE TP SCH ×2 (08:34→16:23)
[2018-02-03 08:47] LABS: ABG OXYGEN SATURATION 89.9 % (92.0-98.5); ABG PCO2 66.2 mmHg (35.0-45.0); ABG PH 7.403 (7.350-7.450); ABG PO2 60.8 mmHg (75.0-100.0); AaDO2 31.5 mmHg; COHb 0.4 % (0.5-1.5); O2Hb 88.6 % (94.0-97.0); SITE, ABG Right Radial; VENT MODE, BG NASAL CANNULA
--- NOTE | 2018-02-03 09:40 | NUR ---
PATIENT RECEIVED ALERT AWAKE ORIENTED X3-4. ON 1LPM O2 VIA NC. NO RESPIRATORY DISTRESS NOTED. DENIES CHEST PAIN & DISCOMFORT. ABLE TO MAKE NEEDS KNOWN. WAS UP ON CHAIR FOR BREAKFAST, ABLE TO CONSUME 100%, TOLERATED WELL. ABLE TO WALK WITH PT IN HALLWAY WITH WALKER. SAFETY MEASURES OBSERVED. CALL LIGHT WITH IN REACH. WILL CONTINUE TO MONITOR.
[2018-02-03] MEDS ORDERED: NEUTRA PHOS 1 POWD.PACKET NG ONE (12:30)
[2018-02-03] MEDS ORDERED: NEUTRA PHOS 1 POWD.PACKET PO ONE (12:30)
[2018-02-03] MEDS: CLONIDINE HCL 0.1 MG TABLET PO PRN (16:07)
--- NOTE | 2018-02-03 16:40 | NUR ---
LADY/RN NOTES: RECEIVED PT. FROM ICU, DX ICU, A/O X 4. ABLE TO MAKE NEEDS KNOWN. ON O2 @ 1LPM VIA N/C - SAT. 96%. NO SOB, NOT IN ANY DISTRESS, BIPAP AT NOC. TELEMETRY READS SR HR 81. DENIES PAIN. LAC G 20 AND RT HAND G18 IVHL FLUSHES WELL, BOTH SITES CLEAR. ON CCHO - PUREED DIET. [PT HAS NO TEETH]. GARVIN CATH IN PLACE 1250 OUTPUT IN ICU. WITH PERINEAL REDNESS BUT REFUSED TO HAVE PHOTOS OF SKIN ISSUES AT THIS TIME. SURROUNDING SKIN - INTACT. CALL LIGHT W/IN REACH. INSTRUCTED TO CALL FOR ASSIST. WILL CONTINUE TO MONITOR.
--- NOTE | 2018-02-03 16:58 | NUR ---
RN NOTE: PATIENT TRANSFER TO [facility] WITH ALL BELONGINGS, REPORT GIVEN TO COSTA ORDONEZ. FAMILY INFORMED BY THE PATIENT.
--- NOTE | 2018-02-03 18:49 | NUR ---
LADY/RN CLOSING NOTES: PT. SITTING IN CHAIR, AT BEDSIDE, A/O X 4. ABLE TO MAKE NEEDS KNOWN. ON O2 @ 1LPM VIA N/C - SAT. 96%. NO SOB, NOT IN ANY DISTRESS, BIPAP AT NOC. TELEMETRY READS SR HR 8Os. DENIES PAIN. LAC G 20 AND RT HAND G18 IVHL FLUSHES WELL, BOTH SITES CLEAR. ON CCHO - PUREED DIET. [PT HAS NO TEETH]. GARVIN CATH IN PLACE TOTAL OUTPUT 2160 ML FOR DAY SHIFT. ALL NEEDS MET FOR NOW. NO OTHER SIGNIFICANT CHANGE IN CONDITION. CALL LIGHT W/IN REACH. INSTRUCTED TO CALL FOR ASSIST. WILL ENDORSE TO NEXT SHIFT FOR DEMETRIA.
[2018-02-03] MEDS: GABAPENTIN 100 MG CAPSULE PO SCH (22:20)
[2018-02-04] VITALS: BP 157/64
[2018-02-04] MEDS: IPRATROPIUM NEB FS 0.5 MG/2.5 ML AMPUL.NEB NEB SCH ×4 (01:45→19:24)
[2018-02-04 04:00] VITALS: BP 143/54
[2018-02-04 06:39] LABS: BASOPHILS % (AUTO) 0.2 % (0.0-2.0); EOSINOPHILS % (AUTO) 0.9 % (0.0-6.0); HEMATOCRIT 33 % (39-51); HEMOGLOBIN 10.6 g/dL (13.5-17.5); LYMPHOCYTES # (AUTO) 2.4 /CMM (0.8-4.8); LYMPHOCYTES % (AUTO) 20.2 % (20.0-44.0); MEAN CORPUSCULAR HGB CONC 32 g/dl (31.0-36.0); MEAN CORPUSCULAR VOLUME 86 fL (80-96); MONOCYTES % (AUTO) 8.5 % (2.0-12.0); NEUTROPHILS # (AUTO) 8.4 /CMM (1.8-8.9); NEUTROPHILS % (AUTO) 70.2 % (43.0-81.0); PLATELET COUNT (AUTO) 244 /CMM (150-450); RDW COEFFICIENT OF VARIATION 16.9 (11.5-15.0); RED BLOOD CELL COUNT(AUTO) 3.85 MIL/uL (4.5-6.0); WHITE BLOOD COUNT (AUTO) 11.9 K/uL (4.3-11.0)
[2018-02-04 06:59] LABS: CALCIUM, SERUM 8.4 mg/dL (8.5-10.1); CREATININE 0.9 mg/dL (0.6-1.3); PHOSPHORUS 2.4 mg/dL (2.5-4.9); POTASSIUM 4.2 mmol/L (3.5-5.1)
--- NOTE | 2018-02-04 07:10 | NUR ---
RN NOTES: RECEIVED PT ON BED, A/Ox4, ABLE TO MAKE NEEDS KNOWN. , ON ON 1L O2 N/C , NO SOB NOTED, RESPIRATION EVEN AND UNLABORED,ON TELE HR IN 60'S SR , L FA IV SITE G 20 AND R HAND IV SITE G 18 SITES CDI, GARVIN CATH IN PLACE DRAINING TO GRAVITY WITH YELLOW URINE , SR UPx3, CALL LIGHT WITHIN EASY REACH. BED LOCKED AND IN LOWEST POSITION . CONTINUE TO MONITOR CLOSELY
[2018-02-04 08:00] VITALS: BP 137/62
[2018-02-04] MEDS: GLIMEPIRIDE 1 MG TABLET PO SCH (08:09)
[2018-02-04] MEDS: predniSONE 20 MG TABLET PO SCH (08:09)
[2018-02-04] MEDS: METFORMIN 500 MG TABLET PO SCH ×2 (08:09→16:13)
[2018-02-04] MEDS: FUROSEMIDE 20 MG/2 ML VIAL IV SCH ×2 (08:09→16:13)
[2018-02-04] MEDS: DOCUSATE SODIUM 100 MG CAPSULE PO SCH (08:09)
[2018-02-04] MEDS: METOPROLOL SUCCINATE 50 MG TAB.SR.24H PO SCH (08:11)
[2018-02-04] MEDS: TAMSULOSIN 0.4 MG CAP.SR.24H PO SCH (08:11)
[2018-02-04] MEDS: LOSARTAN POTASSIUM 50 MG TABLET PO SCH (08:12)
[2018-02-04] MEDS: ASPIRIN EC 81 MG TABLET.DR PO SCH (08:12)
[2018-02-04] MEDS: NYSTATIN TOP POWDER 15 GM BOTTLE TP SCH ×2 (08:13→16:13)
[2018-02-04 12:00] VITALS: BP 136/73
[2018-02-04] MEDS ORDERED: K PHOS NEUTRAL 250 MG TABLET PO ONE (12:00)
--- NOTE | 2018-02-04 12:00 | NUR ---
RN NOTES PT SITTING UP ON A CHAIR, STABLE , NO SOB NOTED, CONTINUE TO MONITOR .
[2018-02-04 16:00] VITALS: BP 155/79
--- NOTE | 2018-02-04 18:38 | NUR ---
RN NOTES SUPPORTIVE FAMILY AT THE BEDSIDE, RESPIRATION EVEN AND UNLABORED , SR UPx3, CALL LIGHT WITHIN EASY REACH, WILL ENDORSE TO MICRO LAB ANALYST NURSE FOR DEMETRIA
[2018-02-04 20:00] VITALS: BP 159/83
[2018-02-04] MEDS: GABAPENTIN 100 MG CAPSULE PO SCH (22:06)
--- NOTE | 2018-02-04 23:10 | NUR ---
PT PLACED ON NOC BIPAP . NO RESPIRATORY DISTRESS NOTED, SPO2 99%. RN VINH NOTIFIED.
[2018-02-05] VITALS: BP 172/89
[2018-02-05] MEDS: diphenhydrAMINE HCL 50 MG/ML VIAL IV PRN (01:08)
[2018-02-05] MEDS: IPRATROPIUM NEB FS 0.5 MG/2.5 ML AMPUL.NEB NEB SCH ×4 (01:54→21:28)
[2018-02-05 04:00] VITALS: BP 189/88
[2018-02-05] MEDS: hydrALAZINE HCL IV 20 MG VIAL IV PRN (04:49)
[2018-02-05 08:00] VITALS: BP 146/73
[2018-02-05] MEDS: GLIMEPIRIDE 1 MG TABLET PO SCH (08:10)
[2018-02-05] MEDS: DOCUSATE SODIUM 100 MG CAPSULE PO SCH (08:11)
[2018-02-05] MEDS: METOPROLOL SUCCINATE 50 MG TAB.SR.24H PO SCH (08:11)
[2018-02-05] MEDS: TAMSULOSIN 0.4 MG CAP.SR.24H PO SCH (08:11)
[2018-02-05] MEDS: ASPIRIN EC 81 MG TABLET.DR PO SCH (08:11)
[2018-02-05] MEDS: METFORMIN 500 MG TABLET PO SCH ×2 (08:11→17:14)
[2018-02-05] MEDS: predniSONE 20 MG TABLET PO SCH (08:11)
[2018-02-05] MEDS: NYSTATIN TOP POWDER 15 GM BOTTLE TP SCH ×2 (08:13→17:14)
[2018-02-05] MEDS: FUROSEMIDE 20 MG/2 ML VIAL IV SCH ×2 (08:14→17:14)
[2018-02-05] MEDS: LOSARTAN POTASSIUM 50 MG TABLET PO SCH (08:18)
--- NOTE | 2018-02-05 10:11 | NUR ---
DR. SANCHEZ ORDERED ABG WITH HOME OXYGEN FOR DC PLANNING.
[2018-02-05 10:33] LABS: ABG BASE EXCESS 15.4 mmol/L; ABG OXYGEN SATURATION 90.9 % (92.0-98.5); ABG PCO2 64.6 mmHg (35.0-45.0); ABG PH 7.436 (7.350-7.450); ABG PO2 60.3 mmHg (75.0-100.0); AaDO2 63.1 mmHg; COHb 0.5 % (0.5-1.5); MetHb 0.5 % (0.0-1.5); SITE, ABG Right Radial
--- NOTE | 2018-02-05 11:55 | NUR ---
REHABILITATION TECH NOTE INITIATED OXYGEN TITRATION. SPO2 89% ON ROOM AIR. NOTIFIED CASE MANAGEMENT.
[2018-02-05 14:45] LABS: ABG BASE EXCESS 15.8 mmol/L; ABG OXYGEN SATURATION 86.8 % (92.0-98.5); ABG PCO2 58.8 mmHg (35.0-45.0); ABG PH 7.474 (7.350-7.450); AaDO2 30.3 mmHg; COHb 0.7 % (0.5-1.5); MetHb 0.5 % (0.0-1.5); O2Hb 85.8 % (94.0-97.0); SITE, ABG Right Radial; VENT MODE, BG RA
[2018-02-05 16:00] VITALS: BP 146/70
--- NOTE | 2018-02-05 19:30 | NUR ---
MS RN OPENING NOTES: PATIENT SITTING ON CHAIR NEAR BED, AOX4, ON O2 AT 1 LPM VIA NC, BREATHING APPEARS EVEN ADN UNLABORED, BREATH SOUNDS CLEAR AT THIS TIME, BUT DIMINISHED AT BASES. PIV OVER R HAND G 18 INTACT AND PATENT TO FLUSH. GARVIN CATHETER IN PLACE DRAINING CLEAR YELLOW URINE. PROVIDED FOR COMFORT AND SAFETY. WILL CONT TO MONITOR.
[2018-02-05 20:00] VITALS: BP 138/64
[2018-02-05] MEDS: GABAPENTIN 100 MG CAPSULE PO SCH (22:34)
[2018-02-06] MEDS: diphenhydrAMINE HCL 50 MG/ML VIAL IV PRN (00:41)
--- NOTE | 2018-02-06 00:45 | NUR ---
RN NOTES: PATIENT PLACED ON NOCTURNAL BIPAP. WILL CONT TO MONITOR. Addendum: 02/06/18 at 0243 by EDUAR SOUZA RN PATIENT TOOK OFF BIPAP, REFUSED TO WEAR IT, RISKS EXPLAINED, PT STILL REFUSING. RT IVORY AT BEDSIDE. PLACED PATIENT BACK ON O2 AT 1 LPM, MAINTAINED HOB ELEVATED. WILL CONT TO MONITOR.
--- NOTE | 2018-02-06 00:45 | NUR ---
RN NOTES: PATIENT COMPLAINED OF SLIGHT AGITATION AND DIFFICULTY SLEEPING. ADMINISTERED DIPHENHYDRAMINE 25 MG IV PRN. BED IN LOWEST AND LOCKED POSITION, SIDERAILS UP X3. BED ALARMS ON.
[2018-02-06] MEDS: IPRATROPIUM NEB FS 0.5 MG/2.5 ML AMPUL.NEB NEB SCH ×4 (02:39→19:49)
[2018-02-06 04:00] VITALS: BP 175/78
[2018-02-06] MEDS: CLONIDINE HCL 0.1 MG TABLET PO PRN (04:59)
--- NOTE | 2018-02-06 04:59 | NUR ---
RN NOTES: BP CHECKED AT 175/78. ADMINISTERED CLONIDINE 0.1 MG PO. WILL RECHECK BP AFTER AN HOUR.
[2018-02-06] MEDS: hydrALAZINE HCL IV 20 MG VIAL IV PRN (06:35)
--- NOTE | 2018-02-06 06:38 | NUR ---
RN NOTES: PATIENT'S BP MORE THAN AN HOUR AFTER CLONIDINE WAS GIVEN IS STILL HIGH AT 181/89, HR: 73. ADMINISTERED HYDRALAZINE 10 MG IV PRN.
--- NOTE | 2018-02-06 07:01 | NUR ---
MS RN CLOSING NOTES: PATIENT IN BED, AOX3, ON O2 AT 1 LPM VIA NC, BREATHING EVEN AND UNLABORED, BREATH SOUNDS DIMINISHED, BUT NO WHEEZING OR CRACKLES HEARD ON AUSCULTATION. PIV OVER R HAND G 18 INTACT AND PATENT TO FLUSH. GARVIN CATHETER IN PLACE DRAINING CLEAR YELLOW URINE. DUE MEDS GIVEN. PROVIDED FOR COMFORT AND SAFETY. BED IN LOWEST AND LOCKED POSITION, SIDERAILS UP X 3, CALL LIGHT WITHIN REACH. WILL ENDORSE TO AM RN FOR DEMETRIA.
--- NOTE | 2018-02-06 07:30 | NUR ---
received pt. in am alert and oriented x3.no complaints offered.
[2018-02-06 08:00] VITALS: BP 136/66
[2018-02-06] MEDS: DOCUSATE SODIUM 100 MG CAPSULE PO SCH (09:39)
[2018-02-06] MEDS: FUROSEMIDE 20 MG/2 ML VIAL IV SCH ×2 (09:40→17:36)
[2018-02-06] MEDS: GLIMEPIRIDE 1 MG TABLET PO SCH (09:40)
[2018-02-06] MEDS: LOSARTAN POTASSIUM 50 MG TABLET PO SCH (09:41)
[2018-02-06] MEDS: TAMSULOSIN 0.4 MG CAP.SR.24H PO SCH (09:42)
[2018-02-06] MEDS: ASPIRIN EC 81 MG TABLET.DR PO SCH (09:42)
[2018-02-06] MEDS: predniSONE 20 MG TABLET PO SCH (09:42)
[2018-02-06] MEDS: METFORMIN 500 MG TABLET PO SCH ×2 (09:42→17:36)
[2018-02-06] MEDS: METOPROLOL SUCCINATE 50 MG TAB.SR.24H PO SCH (09:42)
[2018-02-06] MEDS: NYSTATIN TOP POWDER 15 GM BOTTLE TP SCH ×2 (09:43→17:35)
[2018-02-06 16:00] VITALS: BP 115/70
[2018-02-06] MEDS ORDERED: ENOXAPARIN SODIUM 30 MG/0.3 ML DISP.SYRIN SQ SCH (16:00)
--- NOTE | 2018-02-06 16:44 | NUR ---
transferred via bed to rm. 204-2.report to elizabeth yan. all belongings additionally transferred.vs stable,pt. stable.
[2018-02-06 17:30] VITALS: BP 156/80
--- NOTE | 2018-02-06 17:47 | NUR ---
MS RN NOTES PATIENT TRANSFERRED FROM [facility] TO ROOM 204-2 AT 1700 ACCOMPANIED BY LADY NURSE, DUGLAS AND PT'S . ALERT AND ORIENTED X 3. VERBALLY RESPONSIVE WITH NO C/O PAIN OR DISCOMFORTS AT THIS TIME. PT AND ORIENTED TO UNIT AND ROOM. V/S CHECKED: 156/80, P 80, R 20 , T 98.7 AND SP02 93%. PT ON 02 VIA N/C AT 2LPM, TOLERATING WELL WITH NO ACUTE RESPIRATORY DISTRESS NOTED. PT HAS 2 IV LINES; RIGHT HAND G#18 AND LFA G#20, BOTH INTACT AND PATENT. SAFETY PRECAUTIONS INITIATED. HOB ELEVATED, BED IN LOW/LOCKED POSITION WITH SIDE-RAILS UP X3. CALL LIGHT WITHIN REACH. WILL CONTINUE TO MONITOR PT ACCORDINGLY.
--- NOTE | 2018-02-06 18:21 | NUR ---
in to see pt.
--- NOTE | 2018-02-06 19:23 | NUR ---
MS RN CLOSING NOTES PATIENT AWAKE AND SITTING ON CHAIR BY BEDSIDE. A/O X3, SAME ABLE TO MAKE NEEDS KNOWN. PT MAINTAINED SUPPLEMENTAL 02 VIA N/C AT 1LPM, TOLERATING WELL WITH NO SOB NOTED. PT'S TWO IV LINES ON RIGHT HAND G#18 AND LFA G#20 BOTH INTACT AND PATENT. GARVIN IN PLACE AND ACTIVELY DRAINING CLEAR YELLOW URINE AT BEDSIDE URINARY BAG. ALL SAFETY MEASURES MAINTAINED. HOB ELEVATED, BED IN LOW/LOCKED POSITION WITH SIDE-RAILS UP X2. CALL LIGHT AND BEDSIDE TABLE KEPT WITHIN PT'S REACH. ALL NEEDS AND CARE ATTENDED WELL. ENDORSED TO PAN WASHER NURSE TO CONTINUE CARE.
--- NOTE | 2018-02-06 19:45 | NUR ---
MS RN NOTES RECEIVED A/O X3-4,SITTING ON EDGE OF BED,O2 IN USED AT 2L/NC,SALINE LOCK LFA INTACT AND PATENT.GARVIN CATH IN PLACE DRAINING YELLOWISH OUTPUT.CALL LIGHT IN REACH,NEEDS ANTICIPATED.
[2018-02-06 20:00] VITALS: BP 142/72
[2018-02-06] MEDS: ENOXAPARIN SODIUM 30 MG/0.3 ML DISP.SYRIN SQ SCH (20:56)
[2018-02-06 21:14] VITALS: BP 142/72
[2018-02-06] MEDS: GABAPENTIN 100 MG CAPSULE PO SCH (21:48)
--- NOTE | 2018-02-07 | NUR ---
MS RN NOTES SLEEPING AT THIS TIME,KEPT WARM AND COMFORTABLE.
[2018-02-07] MEDS: IPRATROPIUM NEB FS 0.5 MG/2.5 ML AMPUL.NEB NEB SCH ×4 (01:34→20:07)
[2018-02-07 06:15] LABS: BASOPHILS % (AUTO) 0.3 % (0.0-2.0); EOSINOPHILS % (AUTO) 1.6 % (0.0-6.0); HEMATOCRIT 35 % (39-51); HEMOGLOBIN 11.1 g/dL (13.5-17.5); LYMPHOCYTES # (AUTO) 2.9 /CMM (0.8-4.8); MEAN CORPUSCULAR HGB CONC 32 g/dl (31.0-36.0); MEAN CORPUSCULAR VOLUME 85 fL (80-96); MONOCYTES # (AUTO) 1.1 /CMM (0.1-1.30); MONOCYTES % (AUTO) 8.1 % (2.0-12.0); NEUTROPHILS # (AUTO) 8.9 /CMM (1.8-8.9); PLATELET COUNT (AUTO) 265 /CMM (150-450); RDW COEFFICIENT OF VARIATION 16.7 (11.5-15.0); RED BLOOD CELL COUNT(AUTO) 4.09 MIL/uL (4.5-6.0); WHITE BLOOD COUNT (AUTO) 13.1 K/uL (4.3-11.0)
--- NOTE | 2018-02-07 06:20 | NUR ---
MS RN NOTES NO SIGNIFICANT CHANGE IN STATUS,NO EPISODE OF SOB.ASSIST WITH TRANSFER FROM BED TO CHAIR.SALINE LOCK LFA REMAINS PATENT.IN NO ACUTE DISTRESS.WILL ENDORSE TO DAY NURSE FOR DEMETRIA.
[2018-02-07 06:27] LABS: CALCIUM, SERUM 8.5 mg/dL (8.5-10.1); CREATININE 0.8 mg/dL (0.6-1.3); MAGNESIUM 1.8 mg/dL (1.8-2.4); PHOSPHORUS 3.8 mg/dL (2.5-4.9); POTASSIUM 3.7 mmol/L (3.5-5.1)
--- NOTE | 2018-02-07 07:59 | NUR ---
MS RN OPENING NOTE PATIENT IS ALERT AND ORIENTED x4. NO PAIN AT THIS TIME. NO SOB OR DISTRESS NOTED. ON 2L/MIN OF OXYGEN VIA NASAL CANNULA TOLERATING WELL. ABLE TO COMMUNICATE NEEDS. GARVIN CATHETER IN PLACE, TO DRAIN NEEDED. S/P THORACENTESIS ON 02/01/18 -1.5 LITERS OUT. IV INTACT AND PATENT NO REDNESS OR SWELLING NOTED. WILL CONTINUE TO MONITOR THROUGHOUT SHIFT
[2018-02-07 08:00] VITALS: BP 158/80
[2018-02-07] MEDS: ASPIRIN EC 81 MG TABLET.DR PO SCH (08:47)
[2018-02-07] MEDS: TAMSULOSIN 0.4 MG CAP.SR.24H PO SCH (08:47)
[2018-02-07] MEDS: METFORMIN 500 MG TABLET PO SCH ×2 (08:47→16:50)
[2018-02-07] MEDS: GLIMEPIRIDE 1 MG TABLET PO SCH (08:47)
[2018-02-07] MEDS: FUROSEMIDE 20 MG/2 ML VIAL IV SCH ×2 (08:47→16:50)
[2018-02-07] MEDS: DOCUSATE SODIUM 100 MG CAPSULE PO SCH (08:47)
[2018-02-07] MEDS: predniSONE 10 MG TABLET PO SCH (08:47)
[2018-02-07] MEDS: NYSTATIN TOP POWDER 15 GM BOTTLE TP SCH ×2 (08:48→16:51)
[2018-02-07] MEDS: METOPROLOL SUCCINATE 50 MG TAB.SR.24H PO SCH (08:48)
[2018-02-07] MEDS: LOSARTAN POTASSIUM 50 MG TABLET PO SCH (08:48)
[2018-02-07 16:00] VITALS: BP 115/64
--- NOTE | 2018-02-07 18:38 | NUR ---
MS RN CLOSING NOTE PATIENT COMFORTABLY RESTING RESTING AT THIS TIME. NO FACIAL GRIMACING NOTED FOR PAIN. NO SOB OR DISTRESS NOTED. CALL LIGHT WITHIN REACH AT ALL TIMES. SAFETY MEASURES IMPLEMENTED. ABLE TO COMMUNICATE NEEDS. ALL DUE MEDICATIONS GIVEN ORDERED. ALL NURSING CARE NEEDS ATTENDED TO NEEDED. IV INTACT AND PATENT NO REDNESS OR SWELLING NOTED. POSSIBLE DISCHARGE IN AM. GARVIN CATHETER IN PLACE, OUTPUT-1500. ON ROOM AIR TOLERATING WELL AT 97%. WILL ENDORSE TO ARCHITECTURE INSTRUCTOR FOR DEMETRIA
[2018-02-07 20:36] VITALS: BP 148/67
[2018-02-07] MEDS: ENOXAPARIN SODIUM 30 MG/0.3 ML DISP.SYRIN SQ SCH (21:06)
[2018-02-07] MEDS: GABAPENTIN 100 MG CAPSULE PO SCH (21:35)
[2018-02-08] MEDS: diphenhydrAMINE HCL 50 MG/ML VIAL IV PRN (01:03)
[2018-02-08] MEDS: IPRATROPIUM NEB FS 0.5 MG/2.5 ML AMPUL.NEB NEB SCH ×4 (01:30→19:30)
[2018-02-08 05:09] VITALS: BP 146/56
--- NOTE | 2018-02-08 05:10 | NUR ---
BENADRLY GIVEN TO ASSIST HIM TO HAVE A GOOD NIGHT SLEEP, WITH A SNACK. WEARS 02 2 LITERS AND SATS 94 - 96%. AMBULANTS TO THE BATHROOM STEADY ON HIS LEGS, NO SOB.
[2018-02-08 06:52] LABS: BASOPHILS # (AUTO) 0.1 /CMM (0.0-0.2); BASOPHILS % (AUTO) 0.4 % (0.0-2.0); HEMATOCRIT 36 % (39-51); HEMOGLOBIN 11.6 g/dL (13.5-17.5); LYMPHOCYTES # (AUTO) 3.5 /CMM (0.8-4.8); LYMPHOCYTES % (AUTO) 22.2 % (20.0-44.0); MEAN CORPUSCULAR HGB CONC 32 g/dl (31.0-36.0); MEAN CORPUSCULAR VOLUME 85 fL (80-96); MONOCYTES # (AUTO) 1.4 /CMM (0.1-1.30); MONOCYTES % (AUTO) 8.5 % (2.0-12.0); NEUTROPHILS # (AUTO) 10.7 /CMM (1.8-8.9); NEUTROPHILS % (AUTO) 66.9 % (43.0-81.0); PLATELET COUNT (AUTO) 262 /CMM (150-450); RDW COEFFICIENT OF VARIATION 16.6 (11.5-15.0); RED BLOOD CELL COUNT(AUTO) 4.27 MIL/uL (4.5-6.0)
[2018-02-08 07:05] LABS: CALCIUM, SERUM 8.7 mg/dL (8.5-10.1); CREATININE 0.9 mg/dL (0.6-1.3); MAGNESIUM 1.8 mg/dL (1.8-2.4); PHOSPHORUS 3.2 mg/dL (2.5-4.9); POTASSIUM 3.8 mmol/L (3.5-5.1)
[2018-02-08 08:00] VITALS: BP 163/83
[2018-02-08] MEDS: GLIMEPIRIDE 1 MG TABLET PO SCH (08:30)
[2018-02-08] MEDS: ASPIRIN EC 81 MG TABLET.DR PO SCH (08:31)
[2018-02-08] MEDS: LOSARTAN POTASSIUM 50 MG TABLET PO SCH (08:31)
[2018-02-08] MEDS: predniSONE 10 MG TABLET PO SCH (08:32)
[2018-02-08] MEDS: DOCUSATE SODIUM 100 MG CAPSULE PO SCH (08:32)
[2018-02-08] MEDS: TAMSULOSIN 0.4 MG CAP.SR.24H PO SCH (08:32)
[2018-02-08] MEDS: METOPROLOL SUCCINATE 50 MG TAB.SR.24H PO SCH (08:32)
[2018-02-08] MEDS: METFORMIN 500 MG TABLET PO SCH ×2 (08:35→17:46)
[2018-02-08] MEDS: FUROSEMIDE 20 MG/2 ML VIAL IV SCH ×2 (08:39→17:47)
--- NOTE | 2018-02-08 08:43 | NUR ---
MS RN NOTES PATIENT IS A/O X3, BREAKFAST SERVED WITH GOOD APPETITE. BREATHING TREATMENT VIA NEB WITH RT, EPISODE OF NON PRODUCTIVE COUGH, NO SOB. IVC X2, RIGHT HAND AND LFA PATENT AND INTACT, FLUSHES WELL. GARVIN CATH IN PLACE, DRAINING TO GRAVITY, URINE CLEAR AND YELLOW, BAG OFF THE FLOOR. CALL LIGHT WITHIN REACH. WILL CONT TO MONITOR.
[2018-02-08 11:10] VITALS: BP 131/68
[2018-02-08] MEDS: NYSTATIN TOP POWDER 15 GM BOTTLE TP SCH ×2 (11:10→17:51)
[2018-02-08] MEDS ORDERED: METH4TAB17 PO (16:12)
[2018-02-08 16:32] VITALS: BP 156/83
--- NOTE | 2018-02-08 17:49 | NUR ---
GARVIN CATH REMOVED, OBTAINED 800ML URINE IN THE BAG. WILL MONITOR FOR URINARY RETENTION.
--- NOTE | 2018-02-08 18:34 | NUR ---
MS RN DISCHARGED PATIENT HAS BEEN CLEARED FOR DISCHARGED HOME BY MD. VS REMAINS STABLE, AMBULATORY WITH STANDBY ASSIST. IVC REMOVED IN LEFT HAND AND LFA, GAUZE APPLIED, NO BLEEDING NOTED. DISCHARGE INSTRUCTION GIVEN TO THE PATIENT AND -ALEJANDRO, VERBALIZED UNDERSTANDING. PORTABLE OXYGEN TANK WITH NC SEND WITH THE PATIENT UPON DC. INSTRUCTED PATIENT TO FOLLOW UP WITH /RESPIRATORY OFFICE IN 2 WEEKS, FOLLOW UP CT OUTPATIENT PER MD. -ANTONINA IS AWARE TO HORSE EXERCISER NEW PRESCRIPTION MEDICATION-MEDROL, INDICATION AND POSSIBLE SIDE EFFECT OF NEW MEDICATIONS REVIEWED WITH THE PATIENT AND , VERBALIZED UNDERSTANDING. PATIENT LEFT HOSP IN STABLE CONDITION VIA PRIVATE CAR, OXYGEN 2L VIA NC IN PLACE.
== END 2018-02-08 18:30 | disposition home or self-care (01) | DRG 133 ==
LOC: ER 09:57 → TELE-TD 13:37 → MEDSG1 01-30 10:24 → ICU 01-30 16:04 → TELE-TD 02-03 16:55 → MEDSG1 02-05 09:57 → MEDSG2 02-06 16:42
PROVIDERS: ADMIT Nurse Practitioner Acute Care; ATTEND Nurse Practitioner Acute Care
PROC: 0W993ZZ Drainage of Right Pleural Cavity, Percutaneous Approach (ICD-10-PCS; 2018-01-29)
PROC: 5A09457 Assistance with Respiratory Ventilation, 24-96 Consecutive Hours, Continuous Positive Airway Pressure (ICD-10-PCS; principal; 2018-01-30)
PROC: 0W993ZZ Drainage of Right Pleural Cavity, Percutaneous Approach (ICD-10-PCS; 2018-02-01)
DX: J96.01 Acute respiratory failure with hypoxia (principal); I50.33 Acute on chronic diastolic (congestive) heart failure; E87.2 Acidosis; J90 Pleural effusion, not elsewhere classified; E44.1 Mild protein-calorie malnutrition; E66.2 Morbid (severe) obesity with alveolar hypoventilation; E11.9 Type 2 diabetes mellitus without complications; D63.8 Anemia in other chronic diseases classified elsewhere; I11.0 Hypertensive heart disease with heart failure; J96.02 Acute respiratory failure with hypercapnia; J44.1 Chronic obstructive pulmonary disease with (acute) exacerbation; G47.33 Obstructive sleep apnea (adult) (pediatric); Z79.84 Long term (current) use of oral hypoglycemic drugs; Z87.891 Personal history of nicotine dependence; E88.09 Other disorders of plasma-protein metabolism, not elsewhere classified; Z68.33 Body mass index [BMI] 33.0-33.9, adult
CPT/HCPCS: 36415; 36600; 71045-TC; 76942-TC; 80048-TC; 80053-TC; 80061-TC; 80076-TC; 82803-TC; 82962-TC; 83615-TC; 83735-TC; 83880; 84100-TC; 84155-TC; 84443-TC; 84484-TC; 85025-TC; 85378-TC; 85610-TC; 85730-TC; 87070-TC; 87075-TC; 87081-TC; 87102-TC; 88305-TC; 88312-TC; 89051-TC; 93307-TC; 94660; 94760-TC; 94762-TC; 94799-TC; 97110-TC; 97116-TC; 97530-TC; A4606; J0360; J1200; J1650; J1940; J2060; J2920; J2930; J3490; J7050; Z7610